=== PATIENT | female | born 1950 | race Caucasian/White ===

== ENCOUNTER 2023-08-13 10:49 | Emergency (ER) | payer OTHER ==
[2023-08-13 10:57] VITALS: BP 162/66; PULSE 87; RESP 18; TEMP 98.1; BMI 32.1
[2023-08-13] MEDS ORDERED: SULFAMETHOXAZOLE/TRIMETHOPRIM 800MG/160MG D.S. TABLET ONE (11:57)
[2023-08-13] MEDS ORDERED: LORATADINE 10 MG TABLET ONE (11:57)
[2023-08-13] MEDS ORDERED: BACITRACIN 0.9 GM PACKET ONE (11:59)
[2023-08-13] MEDS: LORATADINE 10 MG TABLET PO ONE (12:08)
[2023-08-13] MEDS: BACITRACIN ZINC 15 GM TUBE TOPICAL OINTMENT TP ONE (12:08)
[2023-08-13] MEDS: SULFAMETHOXAZOLE/TRIMETHOPRIM 800MG/160MG D.S. TABLET PO ONE (12:08)
== END 2023-08-13 12:18 | disposition home or self-care (01) ==
LOC: JER 10:49
DX: L03.031 Cellulitis of right toe (principal); L29.9 Pruritus, unspecified
CPT/HCPCS: 99283-25